=== PATIENT | female | born 1955 | race Caucasian/White ===

== ENCOUNTER 2021-02-26 18:10 | Emergency (ER) | payer BC ==
[~2021-02-26] VITALS: Ht 154.9 cm; Wt 64.0 kg
[2021-02-26] MEDS ORDERED: TOPROL XL25 MG (18:22)
[2021-02-26] MEDS ORDERED: FAMOTIDINE10 MG (18:22)
[2021-02-26] MEDS ORDERED: CEPHALEXIN500 MG PO ×2 (18:56→19:17)
[2021-02-26 19:35] VITALS: BP 128/76
== END 2021-02-26 19:35 | disposition home or self-care (01) ==
LOC: M.ERS 18:10
DX: S61.210A Laceration without foreign body of right index finger without damage to nail, initial encounter (principal); I10 Essential (primary) hypertension; Z88.2 Allergy status to sulfonamides; Z88.8 Allergy status to other drugs, medicaments and biological substances; W26.8XXA Contact with other sharp object(s), not elsewhere classified, initial encounter; Y93.89 Activity, other specified; Y92.89 Other specified places as the place of occurrence of the external cause; Y99.8 Other external cause status